=== PATIENT | female | born 1960 | race Caucasian/White ===

== ENCOUNTER 2022-08-25 06:45 | Outpatient (CLI) | payer OTHER ==
[2022-08-28] MEDS ORDERED: OMEPRAZ PO (10:03)
[2022-08-28] MEDS ORDERED: ANASTROZOLE1 MG PO (10:03)
[2022-08-28] MEDS ORDERED: FAMO PO (10:04)
== END 2022-08-25 07:15 | disposition home or self-care (01) ==
LOC: MRI 06:45
PROVIDERS: ATTEND Surgery
DX: K80.10 Calculus of gallbladder with chronic cholecystitis without obstruction (principal)
CPT/HCPCS: 74181

== ENCOUNTER 2022-08-30 06:33 | Day surgery (SDC) | payer OTHER ==
[~2022-08-30] VITALS: Ht 167.6 cm; Wt 61.2 kg
[~2022-08-30 06:33] MED LIST: ANASTROZOLE1 MG PO; FAMO PO; OMEPRAZ PO
[2022-08-30] MEDS ORDERED: PROTONIX40 MG PO (12:03)
[2022-08-30] MEDS ORDERED: SURFAK240 M1 PO (12:04)
[2022-08-30] MEDS ORDERED: TYLENOL325 MG PO (12:04)
[2022-08-30] MEDS ORDERED: PERCOCET 5-3251 EACH PO (12:04)
[2022-08-30] MEDS ORDERED: MIRALAX17 GM PO (12:04)
== END 2022-08-30 16:10 | disposition home or self-care (01) ==
LOC: CIR.AMB 06:33
PROVIDERS: ATTEND Surgery
DX: K80.10 Calculus of gallbladder with chronic cholecystitis without obstruction (principal); K42.9 Umbilical hernia without obstruction or gangrene; Z85.3 Personal history of malignant neoplasm of breast; Z20.822 Contact with and (suspected) exposure to COVID-19